=== PATIENT | male | born 1975 | race Two or more races ===

== ENCOUNTER 2024-06-16 09:57 | Emergency (ER) | payer OTHER ==
[2024-06-16] MEDS: Ketorolac 60 MG/2 ML SDV IM ONE (11:06)
== END 2024-06-16 12:26 | disposition home or self-care (01) ==
LOC: MW.ED 09:57
DX: M25.562 Pain in left knee (principal); Z75.3 Unavailability and inaccessibility of health-care facilities
CPT/HCPCS: 73562; 96372; 99283; J1885; 99282